=== PATIENT | female | born 1985 | race Caucasian/White ===

== ENCOUNTER 2020-07-11 07:21 | Inpatient (IN) | payer MEDICAID ==
[~2020-07-11] VITALS: Ht 175.3 cm; Wt 103.1 kg
[2020-07-11] MEDS: LACTATED RINGERS 1,000 ML IV SCH ×4 (07:55→16:00)
[2020-07-11] MEDS ORDERED: SODIUM CITRATE/CITRIC ACID 30 ML UDC PO ONE (08:00)
[2020-07-11] MEDS ORDERED: METOCLOPRAMIDE 5 MG/ML, 2ML IV ONE (08:00)
[2020-07-11] MEDS ORDERED: LACTATED RINGERS 1,000 ML IVBOLUS ONE (08:00)
[2020-07-11 08:25] VITALS: BP 118/72
[2020-07-11 08:54] LABS: BASOPHILS % (AUTO) 0 % (0-1); EOSINOPHILS % (AUTO) 1 % (1-7); LYMPHOCYTES % (AUTO) 13 % (22-44); MEAN CORPUSCULAR HEMOGLOBIN 33.3 pg (27.0-34.8); MEAN CORPUSCULAR HGB CONC 34.9 g/dL (32.4-35.8); MEAN PLATELET VOLUME 9.4 fL (7.4-10.4); MONOCYTES % (AUTO) 5 % (2-9); NEUTROPHILS % (AUTO) 82 % (42-75); PLATELET COUNT 177 x10^3/uL (130-400); RED BLOOD COUNT 3.95 x10^6/uL (3.82-5.3); RED CELL DISTRIBUTION WIDTH 14.8 % (9.6-15.2)
[2020-07-11] MEDS ORDERED: SODIUM CITRATE/CITRIC ACID 15 ML UDC ONE (09:01)
[2020-07-11] MEDS ORDERED: OXYTOCIN 30U/ 0.9% NaCL 500ML 500 ML ONE ×2 (09:01→10:58)
[2020-07-11] MEDS ORDERED: METOCLOPRAMIDE 5 MG/ML, 2ML ONE (09:01)
[2020-07-11] MEDS ORDERED: NEWBORN KIT ONE (09:01)
[2020-07-11 09:05] LABS: MD NO
[2020-07-11] MEDS: NICOTINE 7 MG/24 HR PATCH.TD24 TD SCH (10:56)
[2020-07-11] MEDS ORDERED: MISOPROSTOL 100 MCG TABLET ONE (10:58)
[2020-07-11] MEDS ORDERED: morphine SULFATE/PF 0.5 MG/ML, 10ML ONE (12:06)
[2020-07-11] MEDS ORDERED: ONDANSETRON 2MG/ML, 2ML ONE (12:16)
[2020-07-11] MEDS ORDERED: SODIUM CHLORIDE 0.9% PF 10ML ONE ×2 (12:16→12:23)
[2020-07-11] MEDS ORDERED: KETOROLAC 30 MG/1 ML ONE (12:16)
[2020-07-11] MEDS ORDERED: OXYTOCIN 10 UNITS/ML, 1ML ONE (12:16)
[2020-07-11] MEDS ORDERED: DEXAMETHASONE 4 MG/ML, 1ML ONE (12:16)
[2020-07-11] MEDS ORDERED: CEFAZOLIN 1,000 MG ONE (12:16)
[2020-07-11] MEDS ORDERED: MIDAZOLAM 1 MG/ML, 5ML ONE (12:19)
[2020-07-11] MEDS ORDERED: PHENYLEPHRINE 10 MG/ML ONE (12:22)
[2020-07-11 13:21] LABS: AMPHETAMINE SCREEN, URINE Negative (Negative); BARBITURATE SCREEN, URINE Negative (Negative); BENZODIAZEPINE SCREEN, URINE Negative (Negative); CANNABINOID SCREEN, URINE Negative (Negative); COCAINE SCREEN, URINE Negative (Negative); METHADONE SCREEN, URINE Negative (Negative); OPIATE SCREEN, URINE Negative (Negative)
[2020-07-11] MEDS ORDERED: CARBOPROST TROMETHAMINE 250 MCG/ML, 1ML IM PRN (14:30)
[2020-07-11] MEDS ORDERED: MISOPROSTOL 200 MCG TABLET PR PRN (14:30)
[2020-07-11] MEDS ORDERED: OXYcodone IR 5MG TABLET PO PRN (14:30)
[2020-07-11] MEDS ORDERED: ONDANSETRON 2MG/ML, 2ML IV PRN (14:30)
[2020-07-11] MEDS ORDERED: IBUPROFEN 600 MG TABLET PO PRN (14:30)
[2020-07-11] MEDS ORDERED: METHYLERGONOVINE 0.2 MG/ML IM PRN (14:30)
[2020-07-11] MEDS ORDERED: ACETAMINOPHEN 325 MG TABLET PO PRN (14:30)
[2020-07-11] MEDS ORDERED: SIMETHICONE 80 MG CHEW TAB PO PRN (14:30)
[2020-07-11] MEDS ORDERED: OXYcodone IR 5MG TABLET ONE (14:39)
[2020-07-11] MEDS: OXYcodone IR 5MG TABLET PO PRN (14:43)
[2020-07-11 16:00] VITALS: BP 114/74
[2020-07-11] MEDS: OXYTOCIN 30U/ 0.9% NaCL 500ML 500 ML IV SCH (16:00)
[2020-07-11] MEDS: KETOROLAC 30 MG/1 ML IV SCH (19:47)
[2020-07-11 19:50] VITALS: BP 127/74
[2020-07-11 21:20] LABS: MEAN CORPUSCULAR HEMOGLOBIN 32.8 pg (27.0-34.8); MEAN CORPUSCULAR HGB CONC 34.4 g/dL (32.4-35.8); MEAN PLATELET VOLUME 9.5 fL (7.4-10.4); PLATELET COUNT 179 x10^3/uL (130-400); RED BLOOD COUNT 3.92 x10^6/uL (3.82-5.3); RED CELL DISTRIBUTION WIDTH 14.7 % (9.6-15.2)
[2020-07-11 21:57] LABS: MD YES
[2020-07-11 21:59] LABS: <PLATELET ESTIMATE> ADEQUATE; <PLT MORPHOLOGY> NORMAL PLT MORPH; <RBC MORPHOLOGY> NORMAL; BAND#(MANUAL) 0.47 x10^3/uL; BANDS%(MANUAL) 3 % (0-7); LYMPH#(MANUAL) 1.26 x10^3/uL (1-3.4); LYMPHS% (MANUAL) 8 % (22-44); MONOS#(MANUAL) 1.26 x10^3/uL (0.3-2.7); MONOS% (MANUAL) 8 % (2-9); SEGS% (MANUAL) 81 % (42-75)
[2020-07-12 01:11] VITALS: BP 107/66
[2020-07-12] MEDS: KETOROLAC 30 MG/1 ML IV SCH ×4 (01:39→20:40)
[2020-07-12] MEDS: LACTATED RINGERS 1,000 ML IV SCH ×7 (02:00→16:00)
[2020-07-12] MEDS: OXYTOCIN 30U/ 0.9% NaCL 500ML 500 ML IV SCH (02:00)
[2020-07-12 04:24] VITALS: BP 108/67
[2020-07-12 07:25] VITALS: BP 97/59
[2020-07-12] MEDS: DOCUSATE 100 MG CAPSULE PO PRN ×2 (08:04→20:41)
[2020-07-12] MEDS: NICOTINE 7 MG/24 HR PATCH.TD24 TD SCH (08:05)
[2020-07-12] MEDS: PRENATAL VIT/IRON/FA 1 EACH TABLET PO SCH (08:05)
[2020-07-12] MEDS ORDERED: DIPH,PERTUSS(ACELL),TET VAC/PF NC IM-VACC ONE (17:00)
[2020-07-12 19:40] VITALS: BP 116/62
[2020-07-12] MEDS: OXYcodone IR 5MG TABLET PO PRN (20:41)
[2020-07-13] MEDS: KETOROLAC 30 MG/1 ML IV SCH ×3 (02:25→15:01)
[2020-07-13] MEDS: OXYcodone IR 5MG TABLET PO PRN ×3 (02:25→12:49)
[2020-07-13] MEDS ORDERED: FLU VACC QS2020-21(6MOS UP)/PF 60MCG/0.5 ML SYR IM-VACC ONE (05:30)
[2020-07-13 07:15] VITALS: BP 120/79
[2020-07-13] MEDS: LACTATED RINGERS 1,000 ML IV SCH ×4 (08:00)
[2020-07-13] MEDS: PRENATAL VIT/IRON/FA 1 EACH TABLET PO SCH (08:55)
[2020-07-13] MEDS: DOCUSATE 100 MG CAPSULE PO PRN (08:55)
[2020-07-13] MEDS: NICOTINE 7 MG/24 HR PATCH.TD24 TD SCH (08:56)
[2020-07-13] MEDS ORDERED: IBUP-1222 PO (14:33)
[2020-07-13] MEDS ORDERED: OXYC-302 PO (14:34)
[2020-07-13] MEDS ORDERED: KETOROLAC 30 MG/1 ML ONE (15:00)
[2020-07-13] MEDS ORDERED: IBUPROFEN 600 MG TABLET PO PRN (15:30)
== END 2020-07-13 15:45 | disposition home or self-care (01) | DRG 785 ==
LOC: LDIP 07:21 → 2NW 16:00
PROVIDERS: ADMIT Obstetrics & Gynecology; ATTEND Obstetrics & Gynecology
PROC: 10D00Z1 Extraction of Products of Conception, Low, Open Approach (ICD-10-PCS; principal; 2020-07-11)
PROC: 0UB70ZZ Excision of Bilateral Fallopian Tubes, Open Approach (ICD-10-PCS; 2020-07-11)
DX: O30.043 Twin pregnancy, dichorionic/diamniotic, third trimester (principal); O40.3XX0 Polyhydramnios, third trimester, not applicable or unspecified; O34.211 Maternal care for low transverse scar from previous cesarean delivery; O32.2XX2 Maternal care for transverse and oblique lie, fetus 2; O32.1XX2 Maternal care for breech presentation, fetus 2; O99.334 Smoking (tobacco) complicating childbirth; F17.210 Nicotine dependence, cigarettes, uncomplicated; Z3A.37 37 weeks gestation of pregnancy; Z37.2 Twins, both liveborn; Z30.2 Encounter for sterilization; Z20.828 Contact with and (suspected) exposure to other viral communicable diseases
CPT/HCPCS: 36415; 80307; 85025; 86592; 86850; 86900; 87635; 88302; 88305; 88307; 90686; 90715; G0378; J0690; J1100; J1885; J2250; J2274; J2405; J2370; J2590; J2765; J7120